=== PATIENT | male | born 2000 | race Caucasian/White ===

== ENCOUNTER 2021-08-08 18:48 | Emergency (ER) | payer SELFPAY ==
--- NOTE | ~2021-08-08 | XR_ITS ---
EXAMINATION: LEFT HAND CLINICAL INFORMATION: Left hand injury COMPARISON: None TECHNIQUE: 4 views left hand FINDINGS: No significant bone, joint or soft tissue abnormality is seen. XR/XR hand wrist LT IMPRESSION: Negative exam
[2021-08-08 18:52] VITALS: BP 134/65; PULSE 59; RESP 18; TEMP 36.6; O2SAT 100; BMI 25.7
--- NOTE | 2021-08-08 20:04 | ED_ITS ---
HPI - Extremity Problem General Chief complaint: Extremity Injury, Upper Stated complaint: left wrist injury during wrestling match Time Seen by Provider: 08/08/21 20:04 History of Present Illness HPI Narrative: PATIENT COMPLAINS OF LEFT WRIST PAIN AFTER FALLING ON HIS OUTSTRETCHED HAND IN WRESTLING TRAINING, no other injury, no head injury no neck injury no neck pain or back pain Review of Systems Review of Systems: Positive for left wrist pain negatives no headache no neck pain no numbness weakness or tingling no back pain no other extremity pain Yes all other systems are reviewed and are negative PMFSH Past Medical History Source: nursing notes reviewed Physical Exam Vital Signs: Vital Signs: Last Vital Signs Temp 98 F 08/08/21 18:52 Pulse 59 08/08/21 18:52 Resp 18 08/08/21 18:52 BP 134/65 08/08/21 18:52 Pulse Ox 100 08/08/21 18:52 Body Mass Index 25.7 General appearance no acute distress Head is normocephalic atraumatic Neck is supple and nontender Respiratory no distress Extremities the left wrist head mild swelling and maximal tenderness on the ulnar aspect of the wrist, there was no snuffbox tenderness no deformity, skin was intact it was neurovascular intact distal, there was limited range of motion due to discomfort Other extremities were normal No focal motor sensory deficits Course Course Course Narrative: X-ray left hand and wrist was normal and patient was given a Velcro splint and diagnosed with a left wrist sprain and will follow with orthopedics as needed Discharge Plan Discharge Clinical Impression: Sprain and strain of wrist Patient Disposition: Home, Self-Care Additional Instructions: X-RAY TODAY DID NOT SHOW A BROKEN BONE BUT X-RAY MISS MANY INJURIES INCLUDING SOME BROKEN BONES WE GAVE YOU A SPLINT BUT DO NOT RETURN TO FULL ACTIVITY UNLESS THE WRIST IS VERY IMPROVED IF NOT BETTER BY NEXT WEEK FOLLOW WITH ORTHOPEDIST FOR FURTHER EVALUATION Apply ice, use ibuprofen as needed Referrals: Prosper Ortiz MD [Physician] - 2 days (WRESTLER WITH WRIST INJURY NEGATIVE X- RAY) Interventions: ED Discharge Assessment Last Done: 08/08/21 20:18 Discharge Date/Time: 08/08/21 20:34
== END 2021-08-08 20:34 | disposition home or self-care (01) ==
PROVIDERS: Emergency Provider Emergency Medicine
DX: S63.502A Unspecified sprain of left wrist, initial encounter (principal); M25.532 Pain in left wrist; W01.0XXA Fall on same level from slipping, tripping and stumbling without subsequent striking against object, initial encounter; Y93.9 Activity, unspecified; Y92.9 Unspecified place or not applicable; Y99.9 Unspecified external cause status
CPT/HCPCS: 29125; 73110; 73130; 99283

== ENCOUNTER → 2021-08-25 10:26 | Outpatient (BNVA) | payer OTHER, SELFPAY | PROVIDERS: Visit Provider Physician Assistant ==

== ENCOUNTER 2021-09-27 13:04 | Outpatient (REF) | payer OTHER, SELFPAY ==
--- NOTE | ~2021-09-27 | FL_ITS ---
PROCEDURE: FL XR INJECTION ARTHROGRAM WRIST, LEFT CLINICAL INFORMATION: Tear of triangular fibrocartilage complex of the left wrist. COMPARISON: None TECHNIQUE: Fluoroscopic-guided right radiocarpal joint injection for MRI. FINDINGS: Informed consent was obtained from the patient prior to the procedure. During this process, the procedure and potential alternatives were explained, along with the intended outcome and benefits. The risks of the procedure, as well as the risk of not doing the procedure, were discussed. The patient was given the opportunity to ask questions regarding the procedure and appeared competent to make medical decisions. A signed consent form which documents this discussion was placed in the medical record. Using sterile technique and fluoroscopic guidance, a 25-gauge needle was directed down onto the radiocarpal joint between the scaphoid and distal radius. Small amount of contrast was injected demonstrating intra-articular position of the needle. 5 mL of a mixture of 20 mL of sterile saline and 0.08 mL of Gadavist was then instilled into the joint space. Patient tolerated the procedure without difficulty. There is mild negative ulnar variance present. FLUOROSCOPY TIME: 1.3 minutes. DOSE AREA PRODUCT: 0.498 Gy-cm2 (matute-centimeter squared). FL/FL arthrogram wrist LT IMPRESSION: Left wrist intra-articular injection for MRI.
--- NOTE | ~2021-09-27 | MR_ITS ---
EXAMINATION: MRI WRIST WITH INTRA-ARTICULAR CONTRAST, LEFT CLINICAL INFORMATION: Left wrist pain with weightbearing. Triangular fibrocartilage complex tear. COMPARISON: Left wrist fluoroscopic arthrography done earlier the same day. Left hand and wrist radiographs dated 08/08/2021. TECHNIQUE: Multisequence MR imaging of the left wrist was performed without contrast on a high-field strength scanner following the intra-articular administration of contrast. FINDINGS: Evaluation somewhat limited secondary to patient motion. TRIANGULAR FIBROCARTILAGE: Intact. INTRINSIC LIGAMENTS: Thin focal contrast extending through the scapholunate ligament (coronal image 7/20), consistent with a focal nondisplaced full-thickness defect. No associated joint space widening. TENDONS/MEDIAN NERVE: Intact. ARTICULAR CARTILAGE/BONE: No acute fracture or dislocation. Mild marrow edema within the lunate as well as within the proximal pole scaphoid, which could represent osseous contusions. No associated fracture line. Intact articular cartilage. JOINT FLUID/SOFT TISSUES: No abnormal soft tissue mass or fluid collection. MR/MR wrist LT w con IMPRESSION: 1. Punctate full-thickness defect through the scapholunate ligament without associated joint space widening. 2. Osseous contusions within the lunate as well as the proximal pole of the scaphoid. No associated fracture line. 3. Intact triangular fibrocartilage complex.
== END 2021-09-27 13:05 | disposition home or self-care (01) ==
LOC: HO.XRAY 13:04
PROVIDERS: Visit Provider Physician Assistant
DX: S63.592D Other specified sprain of left wrist, subsequent encounter (principal)
CPT/HCPCS: 25246; 73115; 73222; A9585

== ENCOUNTER 2021-10-25 08:16 | Outpatient (REF) | payer OTHER, SELFPAY ==
--- NOTE | ~2021-10-25 | XR_ITS ---
EXAMINATION: XR WRIST, LEFT CLINICAL INFORMATION: Left wrist pain COMPARISON: Radiographs 08/08/2021 TECHNIQUE: AP and oblique views of the left wrist with AP and scaphoid views of both wrists FINDINGS: Normal mineralization. No fracture. No significant joint space narrowing. Ulnar negative variance. No significant change. XR/XR wrist LT w scaphoid IMPRESSION: No acute osseous abnormality. Ulnar negative variance.
== END 2021-10-25 08:17 | disposition home or self-care (01) ==
LOC: HO.HOSX 08:16
PROVIDERS: Visit Provider Orthopaedic Surgery
DX: S63.502D Unspecified sprain of left wrist, subsequent encounter (principal); S60.212D Contusion of left wrist, subsequent encounter
CPT/HCPCS: 73110